=== PATIENT | female | born 1960 | race African-American/Black ===

== ENCOUNTER 2017-01-15 23:29 | Observation (INO) | payer MEDICARE, OTHER ==
[~2017-01-15] VITALS: Ht 170.2 cm; Wt 114.7 kg
--- NOTE | ~2017-01-15 | CT71 ---
[facility] A Service of [facility] RADIOLOGY TEXT RESULTS PATIENT: AGUSTIN CASTELLANOS LOCATION: [facility] : 62 UNIT #: [id number] AGE: [address]: Douglas Cuello MD SEX: F ORDER DR: [id number] [place], [place] [address] [id number] I MR#: [id number] #: [id number] NAME: AGUSTIN CASTELLANOS : 1960 SEX: F STUDY DATE/TIME: 01/16/2017 1:48 UNIT: C3A PCU ROOM: [facility] STUDY DESCRIPTION: CT Head Wo Contrast Attending Physician: Mango Bonilla M.D. Ordering Physician: Chon Leone D.O. Primary Care Physician[facility] REPORT This report is preliminary unless electronic signature is present EXAM CT head without contrast INDICATION Dizziness for the past [address] head. This CT examination was performed with one or more of the following radiation dose reduction techniques: automatic exposure control, adjustment of mA and/or kV according to patient size, and iterative reconstruction. COMPARISON None. FINDINGS No acute hemorrhage, abnormal mass effect, extraaxial collection or hydrocephalus. No calvarial fracture. Paranasal sinuses and mastoid air cells clear. No definitive evidence for acute or early subacute large territory infarct. IMPRESSION No acute intracranial findings. Dictated by... Wilian Mckeon M.D. THIS IS AN ELECTRONICALLY VERIFIED REPORT Wilian Mckeon M.D. at 01/16/2017 10:01 PM JOSED/lalita TD: 01/16/2017 10:06 [facility] A Service [facility] RADIOLOGY TEXT RESULTS PATIENT: AGUSTIN CASTELLANOS LOCATION: [facility] : 62 UNIT #: [id number] AGE: [address]: Douglas Cuello MD SEX: F ORDER DR: JOB #: [id number] MEDICAL IMAGING REPORT Page 1 of 1 COPY
--- NOTE | ~2017-01-15 | DS ---
Unit #: [id number] #: [id number] Patient: AGUSTIN CASTELLANOS [id number] [facility] [address] [place] [facility]. [place], [place] [address] [id number] I MR#: [id number] NAME: AGUSTIN CASTELLANOS ROOM: 307 Age: 56 Sex: F Admission Date: 01/16/2017 : 1960 Discharge Date: 01/17/2017 Attending Physician: Douglas Cuello M.D. Primary Care Physician: [facility], [facility]. DISCHARGE SUMMARY HOSPITAL COURSE This 56-year-old female was admitted to [facility] with dizziness. Details are as per admission H and P. The patient was seen by Dr. Hall in cardiac consultation. It was thought that it was vertigo, and the patient was advised to follow up on an outpatient basis. The patient had a bilateral carotid venous Doppler done, which revealed minimal plaque. No significant stenosis was noted. CT scan of head did not reveal any acute intracranial findings. The patient's chest x-ray also did not reveal any acute process. The patient had a two-D echocardiogram done, which revealed ejection fraction of 60% to 65%. There was mild tricuspid regurgitation present. Therefore, Dr. Hall has recommended to discharge the patient on meclizine. The patient's TSH level was also normal. It was 2.86. PHYSICAL EXAMINATION GENERAL: Today, the patient is comfortable, is not in any acute distress. Is anxious to go home. VITAL SIGNS: Vital signs reveal temperature of 97.7, pulse 70 per minute, respiratory rate 18 per minute and blood pressure 104/63. HEENT: Examination revealed no conjunctival congestion. Sclera is nonicteric. NECK: Neck is supple. Trachea is central. RESPIRATORY: Examination revealed breath sounds equal bilaterally. No wheezes or crackles. HEART: Regular rate and rhythm. S1, S2. ABDOMEN: Abdomen is soft, nontender. Bowel sounds are present in all 4 quadrants. NEUROLOGIC: The patient is alert to person, place and time. Power is 5/5 bilaterally. Sensations are grossly intact. SKIN: Skin is warm and dry. RECOMMENDATIONS ON DISCHARGE 1. Condition is stable. 2. Activity is as tolerated. DISCHARGE MEDICATIONS 1. Meclizine 12.5 mg p.o. b.i.d. p.r.n. 2. Tylenol 650 mg p.o. q.6 hours p.r.n. 3. Patient was advised to continue her home meds of Neurontin 100 mg p.o. t.i.d. p.r.n. and Seroquel 100 mg p.o. daily. Unit #: [id number] #: [id number] Patient: AGUSTIN CASTELLANOS FOLLOW-UP The patient is advised to follow up with her primary care physician in 1 week and with cardiology as recommended. The patient was advised to call primary care physician or go to the ER if her condition changes. Dictated by... Teresa Dee TD: 01/17/2017 12:44 JOB #: [id number] DISCHARGE SUMMARY Page 1 of 1 X Douglas Cuello MD X DISCHARGE SUMMARY
--- NOTE | ~2017-01-15 | CR72 ---
[facility] A Service of [facility] RADIOLOGY TEXT RESULTS PATIENT: AGUSTIN CASTELLANOS LOCATION: [facility] 307- : 62 UNIT #: [id number] AGE: [address]: Douglas Cuello MD SEX: F ORDER DR: [id number] [facility] [address] [facility]. [place], [place] [address] [id number] I MR#: [id number] Acc #: [id number] NAME: AGUSTIN CASTELLANOS : 1960 SEX: F STUDY DATE/TIME: 01/16/2017 1:21 UNIT: [address] ROOM: [facility] STUDY DESCRIPTION: CR Chest Single View Portable Attending Physician: Mango Bonilla M.D. Ordering Physician: Chon Leone D.O. Primary Care Physician: [facility] MEDICAL IMAGING REPORT This report is preliminary unless electronic signature is present EXA Portable chest INDICATIONS Shortness of air and dizziness for the past 2 days. PROCEDURE Frontal view chest. COMPARISON 03/21/2011 FINDINGS Heart size is within normal limits. No dense consolidation, pleural fluid or pneumothorax. IMPRESSION No active process Dictated by... Wilian Mckeon M.D. THIS IS AN ELECTRONICALLY VERIFIED REPORT Wilian Mckeon M.D. at 01/16/2017 10:03 PM LINDSAY/adria TD: 01/16/2017 09:59 JOB #: [id number] MEDICAL IMAGING REPORT Page 1 of 1 COPY
--- NOTE | ~2017-01-15 | US37 ---
[facility] A Service of [facility] RADIOLOGY TEXT RESULTS PATIENT: AGUSTIN CASTELLANOS LOCATION: [facility] 307- : 62 UNIT #: [id number] AGE: [address]: Douglas Cuello MD SEX: F ORDER DR: [id number] [facility] [address] [facility]. [place], [place] [address] [id number] I MR#: [id number] Acc #: [id number] NAME: AGUSTIN CASTELLANOS : 1960 SEX: F STUDY DATE/TIME: 01/16/2017 14:31 UNIT: C3A U ROOM: [facility] STUDY DESCRIPTION: US Carotid W/Doppler Bilateral Attending Physician: Douglas Cuello M.D. Ordering Physician: Sage Caceres M.D. Primary Care Physician: [facility], [facility]. MEDICAL IMAGING REPORT This report is preliminary unless electronic signature is present EXAM Bilateral carotid duplex, 01/16/2017 HISTORY Carotid artery stenosis, dizziness for 3 days. FINDINGS Duplex imaging of the carotid arteries was performed. The right common carotid artery is patent. Internal and external carotid arteries are patent with minimal plaque. Velocity in the right common carotid is 70, internal is 70 and external is 98 cm/sec. Right ICA/CCA ratio is 1. On the left side, the common carotid artery is patent. Minimal plaque is seen in the left internal and external carotid arteries. Velocity in the left common carotid is 63, internal is 64 and external is 76 cm/sec. Left ICA/CCA ratio is 1.0. Antegrade flow is seen in right and left vertebral arteries. IMPRESSION Only minimal plaque is seen in the internal carotid arteries bilaterally. No significant stenosis is seen bilaterally. Antegrade flow is seen in the right and left vertebral arteries. Dictated by... Nate Cabrera M.D. THIS IS AN ELECTRONICALLY VERIFIED REPORT Nate Cabrera M.D. at 01/24/2017 3:57 PM Aileen TD: 01/17/2017 09:24 [facility] A Service of [facility] RADIOLOGY TEXT RESULTS PATIENT: AGUSTIN CASTELLANOS LOCATION: A 307-01 : 62 UNIT #: [id number] AGE: [address]: Douglas Cuello MD SEX: F ORDER DR: JOB #: [id number] MEDICAL IMAGING REPORT Page 1 of 1 COPY
--- NOTE | ~2017-01-15 | HP ---
Unit #: [id number] #: [id number] Patient: AGUSTIN CASTELLANOS [id number] [facility]. [place], [place] [address] [id number] I MR#: [id number] NAME: AGUSTIN CASTELLANOS ROOM: [facility] Age: 56 Sex: F Admission Date: 01/16/2017 : 1960 Attending Physician: Douglas Cuello M.D. Primary Care Physician: [facility] HISTORY AND PHYSICAL HISTORY OF PRESENT ILLNESS A 56-year-old female presented to [facility] with dizziness and near syncopal episode. As per patient, she was in her usual state of health when she had an episode when she was outside and almost passed out and collapsed in her daughter's arms. The patient states that she did not pass out in reality but felt like she was going to pass out. She felt that things were spinning around her and she felt off balance and had generalized weakness. The patient denies having any seizure-like activity or any confusion before or after the spell. The patient stated that it happened three days ago, but she is complaining of lightheadedness since then. Therefore, she decided to come to the hospital. The patient was evaluated in the ER and it was decided to admit overnight for observation. Patient denies having chest pain, tightness, heaviness, shortness of air, headache, or visual problems. There is no history of sore throat, sinus congestion, skin rash, rectal bleeding, or blood in urine. Overall, she is feeling much better now. PAST MEDICAL HISTORY 1. History of anemia. 2. Depression. PAST SURGICAL HISTORY 1. Pilonidal cyst removal. 2. Tubal ligation. 3. Tubal . 4. Foot surgery. ALLERGIES Ibuprofen. HOME MEDICATIONS 1. Neurontin 100 mg t.i.d. 2. Seroquel 100 mg daily. SOCIAL HISTORY The patient quit smoking 25 years ago. She drinks socially. FAMILY HISTORY The patient's mother had diabetes and had a valve disorder as per patient. PHYSICAL EXAMINATION GENERAL: The patient is comfortably in bed, is not in any acute distress. Unit #: [id number] #: [id number] Patient: AGUSTIN CASTELLANOS VITAL SIGNS: Reveal temperature 97.9, pulse 69 per minute, respiratory rate is 18 per minute, blood pressure is 111/66. The patient did not have any orthostasis as her blood pressure on standing up was 150/93. HEENT: Revealed no conjunctival congestion. Sclerae is nonicteric. NECK: Supple. Trachea central. RESPIRATORY: Revealed breath sounds equally bilaterally. There are no wheezes or crackles. HEART: Regular rate and rhythm. S1, S2. ABDOMEN: Soft, nontender. Bowel sounds are present in all four quadrants. NEUROLOGIC: The patient is alert to person, place, and time. Power is 5/5 bilaterally. Sensations are grossly intact. SKIN: Warm and dry. DIAGNOSTIC STUDIES LABORATORY: Labs on admission: Patient's creatinine is 0.9, sodium 137, potassium 3.8. AST and ALT are within normal limits. PT, INR, PTT is normal. WBC is 8.1, hemoglobin 13, platelet count 240,000. Urinalysis was negative. Patient's TSH level was 2.86 and T4 was 0.96. IMAGING: The patient's CT scan of head did not reveal any acute intracranial findings. Chest x-ray did not reveal any active process. CARDIOVASCULAR: EKG revealed normal sinus rhythm. ASSESSMENT AND PLAN A 56-year-old female presented to the hospital with near syncope. Details are as per admission H and P. 1. Near syncope: The patient has been seen by Dr. Caceres in consultation. She will get a carotid Doppler and 2D echocardiogram. She is feeling much better. Her symptoms are atypical and dizziness is nonspecific. 2. Depression: Will continue patient on Seroquel. 3. The patient is full code. The plan was discussed in detail with patient. Dictated by Teresa Dee TD: 01/16/2017 14:24 JOB #: [id number] Unit #: [id number] #: [id number] Patient: AGUSTIN CASTELLANOS HISTORY AND PHYSICAL Page 1 of 1 X Douglas Cuello MD HISTORY AND PHYSICAL
--- NOTE | ~2017-01-15 | CO ---
Unit #: [id number] #: [id number] Patient: AGUSTIN CASTELLANOS [id number] [facility] [address] [facility] [facility]. [place], [place] [address] [id number] I MR#: [id number] NAME: AGUSTIN CASTELLANOS ROOM: [facility] Age: 56 Sex: F Admission Date: 01/16/2017 : 1960 Attending Physician: Douglas Cuello M.D. Primary Care Physician: [facility] CONSULTATION REPORT JOB NOTE: VERIFY CC: [facility], PCP, [facility] CARDIOLOGY. REASON FOR CONSULTATION Dizziness, near syncope. HISTORY OF PRESENT ILLNESS This is a 56-year-old female who has not seen by a pearl cutter, who came to the emergency room after she has been complaining of severe dizziness for 2 days. She describes her dizziness and lightheadedness like her head is floating. She says it has been waxing and waning for about 3 days, but yesterday was the worst. She almost had a near syncopal episode prior to admission. She said she was outside and it was fairly hot and she became very lightheaded, weak and collapsed. She did not sustain any injury. She does complain that the movement seems like everything is spinning at times. She did say she thought she had some left arm weakness when she felt the worst. She denies any chest pain; pain in her neck, bilateral jaws, shoulders, arms, or elbow. She denies any palpitations. No recent cough, fever or chills. Next, in the emergency room, the patient's blood pressure was 141/82, heart rate 74, respirations 18, temperature 98.2, O2 saturation was 98% on room air. The patient's labs; her creatinine was 0.9. Her cardiac enzymes have remained negative. Her CBC is unremarkable. Chest x-ray shows nothing acute and normal and her CT of the head without contrast did not show anything acute. The patient was given some Antivert 25 mg p.o. and also some Decadron and gave normal saline bolus and was admitted for further evaluation and management. Cardiology consult to assist with evaluation and management. PAST MEDICAL HISTORY Denies history of hypertension, diabetes mellitus, or hyperlipidemia. Denies any seizure activity. Reports that she is a reformed smoker, stopped 25 years ago. Drinks 1 to 2 glasses of hard liquor 2 to 3 times a week. Strong family history of diabetes mellitus and her mother at the age of 63 from congestive heart failure. PAST SURGICAL HISTORY Pilonidal cyst removed, tubal , foot surgery. HOME MEDICATIONS Seroquel 100 mg p.o. daily, Neurontin 100 mg p.o. t.i.d. Unit #: [id number] #: [id number] Patient: AGUSTIN CASTELLANOS ALLERGIES Ibuprofen. SOCIAL HISTORY The patient lives with her family. The patient quit smoking 25 years ago. She drinks 1 to 2 glasses of hard liquor 2 to 3 times a week. No illicit drug abuse. FAMILY HISTORY Positive diabetes mellitus in her mother and brother. REVIEW OF SYSTEMS See details in HPI. PHYSICAL EXAMINATION GENERAL: Ms. Castellanos is a 56-year-old female, in no acute respiratory distress. She is awake, alert, and oriented. VITAL SIGNS: Blood pressure is 121/71, heart rate is 92, respirations 18, temperature 98.0, O2 saturations 97% on room air. NECK: Trachea midline. No thyromegaly or lymphadenopathy. Normal carotid upstrokes. No jugular venous distention. HEART: S1, S2. Regular rate and rhythm. No clicks, murmurs, or rubs. LUNGS: Diminished, otherwise clear. ABDOMEN: Soft and nontender. EXTREMITIES: Pedal pulses are palpable. No pedal edema. DIAGNOSTIC DATA LABORATORY RESULTS: Glucose is 110, BUN 19, creatinine 0.9, eGFR is 83.5, sodium 137, potassium 3.8, chloride 105, CO2 of 25, calcium is 9.4, total protein 7.7, albumin 3.9, bilirubin total 0.3, AST 16, ALT 11, alkaline phosphatase is 74. WBCs 8.1, hemoglobin 13.0, hematocrit 40.0, platelets is 214. Initial cardiac enzymes; CK-MB is less than 1.0, troponin is less than 0.05. Cardiac enzymes this morning, troponin less than 0.01. INR is 0.9. Urinalysis, 0.2 urobilinogen, otherwise unremarkable. IMAGING STUDIES: Chest x-ray, nothing acute. CT of the head without contrast, nothing acute. CARDIOVASCULAR STUDIES: EKG shows normal sinus rhythm with a ventricular rate of 65 beats per minute, slow R-wave progression. IMPRESSION 1. Dizziness and near syncope. 2. Mild obesity. 3. Denies hypertension, diabetes mellitus, hyperlipidemia, or seizures. 4. Reformed smoker. 5. Occasional alcohol use. 6. Mild obesity. PLAN 1. Obtain orthostatic vital signs and evaluate, so far unremarkable. 2. Obtain a 2D echo to evaluate LV function and valves. 3. The carotid Doppler 7 studies and on exam, there is no indication of any carotid bruits. 4. The patient was given some Antivert and she said it did seem to help. 5. Some of her dizziness could be related to the Neurontin and Seroquel, so we will evaluate. Unit #: [id number] #: [id number] Patient: AGUSTIN CASTELLANOS 6. On exam, there are no signs or symptoms of unstable angina or acute congestive heart failure. Cardiac enzymes have been negative. EKG did not show anything acute. At this time, I want to proceed with further cardiac workup and possibly that can be done as an outpatient. There are no signs or symptoms of acute congestive heart failure. 7. Encouraged the patient to completely quit drinking alcohol. 8. Further recommendations pending per Dr. Caceres. Thank you very much for allowing us to assist in the care. Dictated by... Hanna ArnoldRRoseN. for Sage Caceres M.D. DORIAN/radha TD: 01/17/2017 03:06 JOB #: [id number] CONSULTATION REPORT Page 1 of 1 X Mala Ramsey APRN CONSULTATION REPORT
--- NOTE | ~2017-01-15 | EKG ---
PATIENT: AGUSTIN CASTELLANOS UNIT #: [id number] Ventricular Rate: 65 BPM Atrial Rate: 65 BPM P-R Interval: 174 ms QRS Duration: 90 ms Q-T Interval: 420 ms QTC Calculation(Bezet): 436 ms P Mccaulley: 45 degrees Calculated R Mccaulley: -27 degrees Calculated T Mccaulley: 25 degrees Diagnosis Line: Normal sinus rhythm with sinus arrhythmia Diagnosis Line: Low voltage QRS Diagnosis Line: Borderline ECG Diagnosis Line: When compared with ECG of 27-NOV-2011 15:57, Diagnosis Line: No significant change was found Diagnosis Line: Confirmed by CRYS BAL MD ([id number]) on Diagnosis Line: 01/16/2017 12:21:59 PM INTERPRETING MD: MAT
[~2017-01-15 23:29] MED LIST: ANTIVERT PO; CLEOCIN PO; COLACE PO; DARVOCET-N 1001 TAB PO; LEVAQUIN PO; ULTRAM PO
[2017-01-16 01:44] LABS: POC - CKMB <1.0 ng/mL (0.0-7.9); POC - TROPONIN <0.05 ng/mL (<=0.05)
[2017-01-16 02:17] LABS: BASOPHIL% 0.5 % (0-2.5); EOSINOPHIL# 0.1 X10e3 (0-0.7); EOSINOPHIL% 1.4 % (0.0-7.0); LYMPHOCYTE# 2.2 X10e3 (1.0-3.5); LYMPHOCYTE% 27.5 % (17.0-45.0); MEAN CELL VOLUME 83.2 FL (83-96); MEAN CORPUSCULAR HGB CONC 32.5 g/dL (30-36); MEAN PLATELET VOLUME 9.9 FL (6.5-11.5); MONOCYTE# 0.5 X10e3 (0-1.0); MONOCYTE% 6.2 % (3.0-12.0); NEUTROPHIL# 5.2 X10e3 (1.5-7.1); NEUTROPHIL% 64.4 % (40-75); PLATELET COUNT 214 X10e3 (140-420); RED BLOOD COUNT 4.81 X10e (3.90-5.30); RED CELL DISTRIBUTION WIDTH 16.5 % (11.0-15.5); WHITE BLOOD COUNT 8.1 X10e3 (4.0-10.5)
[2017-01-16 02:20] LABS: DIFF IND NO
[2017-01-16 02:32] LABS: INR 0.9; PARTIAL THROMBOPLASTIN TIME 26.6 SECONDS (23.5-31.3); PROTHROMBIN TIME (PATIENT) 10.1 SECONDS (10.0-11.7)
[2017-01-16 02:43] LABS: ALBUMIN SERUM 3.9 g/dL (3.5-5.0); ALKALINE PHOSPHATASE 74 U/L (32-92); ALT (SGPT) 11 U/L (10-40); AST (SGOT) 16 U/L (10-42); BILIRUBIN,TOTAL 0.3 mg/dL (0.2-2.0); BLOOD UREA NITROGEN 19 mg/dL (9-23); BUN/CREATININE RATIO 21.11; CALCIUM SERUM 9.4 mg/dL (8.4-10.2); CARBON DIOXIDE 25 mmol/L (22-31); CHLORIDE 105 mmol/L (100-111); CREATININE SERUM 0.9 mg/dL (0.6-1.4); GLOM FILT RATE Estimated 83.5 mL/min (>60); GLUCOSE FASTING 110 mg/dL (70-110); POTASSIUM 3.8 mmol/L (3.5-5.1); PROTEIN TOTAL SERUM 7.7 g/dL (6.0-8.3); SODIUM 137 mmol/L (135-145)
[2017-01-16 02:45] LABS: BILIRUBIN, DIRECT <0.1 mg/dL (0.0-0.2); BILIRUBIN,INDIRECT 0.2 mg/dL (0.0-0.9)
[2017-01-16] MEDS ORDERED: NEURONTIN100 MG PO (05:26)
[2017-01-16] MEDS ORDERED: SEROQUEL100 MG PO (05:26)
[2017-01-16 05:46] LABS: URINE SOURCE CLEAN CATCH
[2017-01-16 05:53] LABS: URINE APPEARANCE CLEAR; URINE BILIRUBIN NEG (NEG); URINE BLOOD NEG (NEG); URINE COLOR YELLOW; URINE GLUCOSE NEG (NEG); URINE KETONE NEG (NEG); URINE LEUKOCYTE ESTERASE NEG (NEG); URINE NITRATE NEG (NEG); URINE PH 5.5 (5-8); URINE PROTEIN NEG (NEG); URINE SPECIFIC GRAVITY 1.022 (1.003-1.035); URINE UROBILINOGEN 0.2 MG/DL (NEG)
[2017-01-16 05:55] LABS: CULTURE INDICATED? NO
[2017-01-16 08:42] LABS: THYROID STIMULATING HORMONE 2.86 uIU/ml (0.34-5.60)
[2017-01-16 08:49] LABS: FREE THYROXIN (T4) 0.96 ng/dL (0.58-1.64)
[2017-01-17] MEDS ORDERED: ACETAMINOPHEN PO (13:09)
[2017-01-17] MEDS ORDERED: MECLIZINE HCL12.5 M2 PO (13:11)
== END 2017-01-17 13:59 | disposition home or self-care (01) ==
LOC: CED 23:29 → C3A PCU 01-16 05:10 → CEDOF 01-16 05:10 → CED 01-16 05:32 → C3A PCU 01-16 08:34 → CEDOF 01-16 08:34 → C3A PCU 01-16 10:08
PROVIDERS: Emergency Medicine; Internal Medicine Cardiovascular Disease
DX: R55 Syncope and collapse (principal); R42 Dizziness and giddiness; I07.1 Rheumatic tricuspid insufficiency; F32.9 Major depressive disorder, single episode, unspecified; Z87.891 Personal history of nicotine dependence; E66.9 Obesity, unspecified
CPT/HCPCS: 36415; 70450; 71010; 80048; 80076; 81003; 82553; 84439; 84443; 84484; 85025; 85610; 85730; 93005; 93306; 93880; 96374; 99285; G0378; J1100